=== PATIENT | female | born 1955 | race Caucasian/White ===

== ENCOUNTER → 2017-06-18 | Day surgery (SDC) | payer MEDICARE, MEDICAID ==
--- NOTE | 2017-06-11 10:11 | PCM.ANEPRE ---
Anesthesia Pre-Op Review Reason for Review: Anxious based on prior prolonged emergence Anesthesia Recommendations: Proceed with Procedure Additional Comments 62 woman for ventral hernia repair 06/[address] padilla. Anxious about anesthesia because of prolonged emergence 35 yrs ago in [place]. Called and spoke to her today 06/11 and reassured her that we could possibly do a propofol/remifentanil technique with more rapid emergence. She seemed reassured by this. All questions answered. Chart Reviewed by: Tone Rubalcava MD, MD Jun 11, 2017 10:11
[~2017-06-18] VITALS: Ht 165.1 cm; Wt 70.7 kg
[2017-06-18] VITALS (9 sets, daily range): BP systolic 120–138; BP diastolic 72–85; PULSE 65–90; RESP 12–25; O2SAT 96–98
[~2017-06-18] MED LIST: ACET-171 PO; ASPI-973 PO; Atropine 0.4 mg/mL Inj IVPUSH PRN; Bupivacaine Liposome 1.3% 20 mL Inj INFILTRATE SCH; Bupivacaine-MPF 0.5% 30 mL Inj INFILTRATE ONE; CRES20T PO; Clindamycin Inj 900 MG in IV Premix 1 EACH IV ONE; Clindamycin Inj 900 MG in IV Premix 1 EACH IV SCH; DOCU-41 PO; Dexamethasone 4 mg/mL Inj IVPUSH PRN; EPHEDrine Sulfate 50 mg/mL Inj IVPUSH PRN; EPHEDrine/NS 5 mg/mL 5 mL Syringe ONE; FAMO20T PO; HYDR25TA4 PO; HYDROmorphone 1 mg/mL Inj IVPUSH PRN; KLO5T PO; KRIL500C PO; LACT1CAP60 PO; LORA10CA9 PO; Labetalol 5 mg/mL 20 mL Inj IV PRN; Lactated Ringer's 1,000 ML IV SCH; Lactated Ringer's 500 ML IV PRN; NITR0.4T SL; OMEP20CA11 PO; OXYC-530 PO; Ondansetron 2 mg/mL 2 mL Inj IVPUSH PRN; Ondansetron 2 mg/mL 2 mL Inj ONE; POLY17PO6 PO; PRAS10TA5 PO; Phenylephrine 10,000 mCg/mL Inj IVPUSH PRN; Propofol 10,000 mCg/mL 100 mL Inj ONE; Remifentanil 1 mg/3 mL Inj ONE; fentaNYL-PF 50 mCg/mL 2 mL Inj ONE; hydrALAZINE 20 mg/mL Inj IVPUSH PRN
[2017-06-18] MEDS: Lactated Ringer's 1,000 ML IV SCH ×2 (06:33→07:29)
--- NOTE | 2017-06-18 07:13 | PCM.HPANE ---
Patient Data Surgeon Admitting Provider: Attending Provider:Taz Vegas MD Primary Care Physician:Roro Aviles Pa-C Other Provider:Mark Weaver Anesthesia Reason for Visit Incisional Hernia Ht/WT & BMI Height (Feet): 5 Height (Inches): 5 Weight (Kilograms): 70.7 Body Mass Index 25.00 Allergies Coded Allergies: Penicillins (Verified Allergy, Unknown, Rash, 05/28/17) Sulfa (Sulfonamide Antibiotics) (Verified Adverse Reaction, Intermediate, nausea, upset stomach., 04/26/15) atorvastatin (Verified Adverse Reaction, Intermediate, 05/28/17) flu symptoms and night sweats. Crestor is OK, she hasn't had problems with that. aspirin (Verified Adverse Reaction, Mild, Abdominal Pain, 05/28/17) upset stomach unless enteric coated. Baby ASA is OK Past Anesthesia History Anesthesia History: Positive for:: Anesthesia Reactions ("Couldn't wake up for 3 days after a surgery and had not stop nausea"), Denies:: Abnormal Airway, Difficult Intubation, Fam Anesthesia Reaction, Fam Malignant Hypertherm, Malignant Hyperthermia Diabetes History Hx Diabetes?: Yes Type of Diabetes: Diet Controlled Current Bedside Blood Glucose: 122 MRSA MRSA: No Medications Blood Thinner: Aspirin Hypertension Medication: Yes Home Meds Incl Beta Alen: No Reported Medications Lactobac Cmb #3/Fos/Pantethine (Probiotic & Acidophilus Cap)1 Each Capsule1 Each PO DAILY 05/28/17 Omeprazole 20 Mg Capsule.dr20 Mg PO DAILY Ref 0 05/28/17 Nitroglycerin SL (Nitrostat)0.4 Mg Tab.subl0.4 Mg SL Q5MIN PRN For Chest Pain # 1 BOTTLE 05/28/17 Loratadine 10 Mg Pzonvmp52 Mg PO DAILY 05/28/17 Krill Oil 500 Mg [id number] Mg PO DAILY 05/28/17 Hydrochlorothiazide 25 Mg Qhmmjb49 Mg PO DAILY 30 Days Ref 0 05/28/17 Famotidine (Pepcid)20 Mg Bagouz44 Mg PO BID 05/28/17 Prasugrel HCl (Effient)10 Mg Znotxx26 Mg PO DAILY 30 Days Ref 0 05/28/17 Docusate Sodium (Colace)100 Mg Ugajzwn902 Mg PO DAILY PRN For Constipation Ref 0 05/28/17 Rosuvastatin Calcium (Crestor)20 Mg Zvdsuw59 Mg PO DAILY 30 Days Ref 0 05/28/17 Clonazepam 0.5 Mg Tablet0.25-0.5 Mg PO BID PRN For Anxiety Ref 0 05/28/17 Aspirin 81 Mg Idffab92 Mg PO DAILY Ref 0 05/28/17 History History of ENT Problems?: Yes HEENT History: Positive for:: Sinus Problem ("sinus surgeries") Denies:: Abnormal Airway Cataracts Difficult Intubation Dysphagia Glaucoma Hearing Problem TMJ Denture Type: Full- Upper Full- Lower Teeth Condition: Missing Teeth Hx of Heart Problems?: Yes Cardiovascular History: Positive for:: Cardiac Surgery (stent x 2 in 2011) Edema Hypertension Denies:: Chest Pain Congestive Heart Failure Heart Murmur Irregular Heartbeat Pacemaker Thrombophlebitis Hx of Respiratory Problem?: Yes Respiratory History: Positive for:: Dyspnea Pneumonia (twice, remote hx of ) Denies:: Asthma COPD Chest Surgery Emphysema Hemoptysis Oxygen Administration Tuberculosis Use of C-PAP Machine Use of Inhalers / NEBS Hx Neurologic Problems?: Yes Neurological History: Positive for:: Headaches Seizures ("a long time ago" use to take depakote-Grandmal seizures from migrains) Denies:: Alzheimer's Disease CVA Dementia Dizziness Multiple Sclerosis Parkinson's Disease Other Neurological Pertinent: stopped depakote long ago- Hx of GI Problems?: Yes Other GI Pertinent History: ventral hernia current admission problem Hx of Problems?: No Genitourinary History: Denies:: HX of Hemodialysis Kidney Stones Urinary Tract Infection HX of Peritoneal Dialysis: No Female Hx: Positive for:: Endometriosis Denies:: Currently (hysterectomy) Pelvic Inflammatory Problems with Breasts? Skin History: Positive for:: History Skin Disorders? (recently delayed surgery re: skin boils/bottom ) Denies:: Pressure Ulcers Hx Musculoskeletal Problems?: Yes Musculoskeletal History: Positive for:: Back Injury (sciatica ) Musculoskeletal Trauma Osteoarthritis Denies:: Fibromyalgia (pt says it was dx'd, refuses rx) Joint Replacement Systemic Lupus Hx of Psycho/Social Problems?: Yes Psycho Social History: Positive for:: Anxiety Hx Depression Suicide Attempt ("years ago." no recent attempts) Denies:: Bipolar Disorder Hx Surgeries?: Yes (3 C SECTIONS, CONE SURGERY, HYSTERECT, GALL BLADDER, 2 WIDOMAKERS, ) Hx Any Other Health Problems?: Yes Other History: Positive for:: Cancer (cervical CA 2000- total hysterectomy) Hospitalization Denies:: Endocrine Disease Thyroid Disease (lump in throat at one time, has not been checked in years) History Blood Transfusions: Positive for:: Accept Blood Products? Denies:: Blood Transfuse Reaction Blood Transfusions Hx Diabetes: YesBedside Blood Glucose: 122 Hx Alcohol Use: NoHx Substance Use: No Smoking Status: Former Smoker Have You Smoked inLast 12 mo: No Stop/Bang S-Snoring: Do You Snore Loudly: No T-Tired: feel tired, fatigued: No O-Obsered: Observed not breath: No P-Blood Pressure: treated: Yes B- Body Mass Index > 35 kg/m2: No A- Age over 50: Yes N- Neck Large Circumference: No G- Gender Male: No ANICETO Total Score: 2 Risk Assessment Category Category 1A: Patient has history of documented sleep apnea, and HAS NOT received any narcotic, sedative or anesthesia administration during this stay. Category 1B: Patient has history of documented sleep apnea, and HAS received any narcotic , sedative or anesthesia administration during this stay Category 2: Patient has SUSPECTED Obstructive Sleep Apnea, and HAS received any narcotic , sedative or anesthesia administration during this stay. Category 3: Patient has SUSPECTED Obstructive Sleep Apnea and HAS NOT received narcotic, sedative or anesthesia administration during this stay. Category 4: Outpatient in Procedural Areas with known sleep apnea or who screen positive for High Risk via the STOP/BANG questionnaire. Exam Exam Vital Signs Vital Signs Date Time Temp Pulse Resp B/P Pulse Ox O2 Delivery O2 Flow Rate FiO2 06/18/17 06:09 36.0 72 16 136/83 97 Room Air General Appearance: Alert, Oriented X3, Cooperative, Moderate Distress HEENT/AIRWAY: MP 2 Lungs: Clear to Auscultation Heart: Exam Unremarkable Meds/Labs/Diagnostics Admission Meds Current Medications Lactated Ringer's (Lr) 1,000 ml @ 120 mls/hr Q8H20M IV Last administered on t 06:33; Start 06/18/17 at 05:00; Stop 06/18/17 at 13:19 Bedside Blood Glucose: 122 Plan Impression Patient chart reviewed, patient interviewed and anesthestic plan with risks, benefits, and alternatives discussed, and informed consent obtained. ASA Physical Status: ASA2 Mod Systemic Disease Anesthetic Plan: GA Bene/Risks/Altern/Consents: Yes HP Complete Prior to Induction: Yes Elijah Alatorre MD Jun 18, 2017 07:13
--- NOTE | 2017-06-18 08:43 | PCM.SURGOP ---
Surgical Operative Report Date of Service: Jun 18, 2017 Pre Operative Diagnosis Ventral incisional hernia Post Operative Diagnosis Same, incarcerated Procedure: Open repair of incarcerated ventral hernia with mesh Surgeon and Track Service Person: Surgeon: Taz Vegas MD Assistants: Ny Royal MD PGY-4 Indication for Procedure 62-year-old woman who previously underwent laparoscopic cholecystectomy in 2011 , and subsequently developed an incisional hernia at the umbilical site, just below the umbilicus. A CT scan of the abdomen and pelvis showed a single defect measuring approximately 2.5 cm in diameter containing preperitoneal fat. After discussion of risks and benefits, she agreed to proceed with open ventral incisional hernia repair with mesh. Findings: The fascial defect measured approximately 2.5 cm, containing incarcerated preperitoneal and omental fat. There were quite a few adhesions around the defect, which were taken down bluntly. No other defects were appreciated. A repair was performed using the large Bard Ventralex mesh. Procedure Details After smooth induction of general anesthesia with an LMA, she was placed in the supine position with both arms out, and was prepped and draped in a wide sterile fashion. A preprocedural timeout was performed according to the SCOAP checklist, and all were found to be in agreement. A vertical incision was made in the midline below the umbilicus. Dissection was carried through the superficial subcutaneous tissue, and almost immediately the hernia sac was encountered. The hernia sac was opened. Within the hernia, there was incarcerated omental and preperitoneal fat. The hernia sac was dissected free from the fascia and excised, and discarded. The omental fat was freed up from the remaining hernia contents, and reduced into the abdominal cavity. The fascial defect measured approximately 2.5 cm. Palpation through the defect revealed numerous adhesions from the omentum to the anterior abdominal wall around the umbilicus and the fascial defect, which were taken down bluntly until no remaining adhesions could be appreciated. There were no other fascial defects. A repair was then performed using the Bard Ventralex mesh, size large. This was secured circumferentially using 0 Nurolon transfascial sutures. Superiorly, the umbilicus needed to be disconnected in order to place the superior suture. This was done, and then after mesh was placed, the umbilicus was resuspended to the fascia with a 3-0 Vicryl [id number]-op-[id number] suture. The tails of the mesh were cut. The fascia was closed over the mesh transversely using interrupted 0 Nurolon sutures. The mesh was in excellent position. The subcutaneous space was obliterated with interrupted 3-0 Vicryl sutures. The skin incision was closed with a running 4-0 Monocryl subcuticular stitch. Steri-Strips and sterile dressings were applied. At the end of the case all needle and sponge counts were correct 2. The patient was awakened from anesthesia without difficulty, and taken to the recovery room in satisfactory condition, having tolerated the procedure well. Complications There were no periprocedural complications identified. Surgical Specimen Removed: No Specimen sent to Pathology: Not applicable Anesthetic Plan: GA Grafts, Implants: Implants-See Implant Record Output, Estimated Blood Loss: 30 Blood Administration during kern: No Drains: None Catheters: None copies to: Justina Hernandez MD, Joshua D MD Jun 18, 2017 08:43
--- NOTE | 2017-06-18 08:51 | PCM.DISURG ---
Surgical Discharge Instruction Date of Service Jun 18, 2017 Dates of Hospitalization Date of Hospital Admission Providers Admitting Physician: Primary Care Physician: Roro Aviles Pa-C Attending Physician: Taz Vegas MD Discharge Diagnosis Post Operative diagnosis Same, incarcerated Diet Discharge Diet: No restrictions Activity Discharge Activity-General: Activity as pain allows, No lifting >15 pounds for 2 weeks, No driving while taking narcotic Dressing and Incisional Care Dressing Care: Allow Steri Stripes to fall off, Remove outer dressing after 24 hrs Hygiene: May shower after (24 hours. Pat incisions dry.) Additional Instructions Additional Instructions May resume Effient blood thinner today. Follow Up Plan Follow Up Plan No lifting more than 15 lbs for 2 weeks or until after your see us in clinic. Mid-level Provider (F9): Matthias Garibay PA-C Follow-up appointment: Weeks (2-3) Ny Royal MD Jun 18, 2017 08:51
[2017-06-18] MEDS: fentaNYL-PF 50 mCg/mL 2 mL Inj IVPUSH PRN ×3 (08:53→09:08)
--- NOTE | 2017-06-18 09:45 | PCM.ANEP1 ---
Post Anesthesia PACU Phase 1 Assessment Vital Signs Vital Signs Date Time Temp Pulse Resp B/P Pulse Ox O2 Delivery O2 Flow Rate FiO2 06/18/17 09:36 68 14 131/72 98 Room Air 06/18/17 09:20 36.4 71 12 131/76 97 Room Air 06/18/17 09:15 65 12 132/78 96 Room Air 06/18/17 09:10 36.1 70 22 122/85 98 Room Air 06/18/17 09:00 84 25 138/83 96 Room Air 06/18/17 08:55 86 25 136/79 97 Room Air 06/18/17 08:50 90 20 133/79 97 Room Air 06/18/17 08:45 36.6 88 16 120/75 97 Room Air 06/18/17 06:09 36.0 72 16 136/83 97 Room Air Level of Alertness: Awake, talking CANALES's with Equal Strength: Yes Pain: No Nausea or Vomiting: No CV Function & Hydration Stable: Yes Airway Device: Oxygen Delivery: Room Air Lungs: Normal Air Movement PACU Phase 2 Assessment Complications: No Follow up Care: No Patient Instructions Provided: N/A Elijah Alatorre MD Jun 18, 2017 09:45
== END | disposition home or self-care (01) ==
LOC: SAS 05:39
PROVIDERS: ATTEND Student in an Organized Health Care Education/Training Program
DX: K43.0 Incisional hernia with obstruction, without gangrene (principal); I25.10 Atherosclerotic heart disease of native coronary artery without angina pectoris; I10 Essential (primary) hypertension; E11.9 Type 2 diabetes mellitus without complications; K21.9 Gastro-esophageal reflux disease without esophagitis; I25.2 Old myocardial infarction; E78.2 Mixed hyperlipidemia; F32.9 Major depressive disorder, single episode, unspecified; E04.1 Nontoxic single thyroid nodule; Z95.5 Presence of coronary angioplasty implant and graft; Z87.891 Personal history of nicotine dependence; Z79.82 Long term (current) use of aspirin
CPT/HCPCS: 49561; 49568; C1781; J2250; J2405; J3010; J3490; J7120